=== PATIENT | male | born 1965 | race Two or more races ===

== ENCOUNTER 2024-06-21 20:57 | Emergency (ER) | payer SELFPAY ==
[~2024-06-21] VITALS: Ht 177.8 cm; Wt 91.0 kg
[2024-06-21 21:07] VITALS: O2SAT 98
[2024-06-21] MEDS: IBUPROFEN 600MG TABLET PO ONE (21:30)
[2024-06-21] MEDS ORDERED: IBUP-2029 MT (21:59)
[2024-06-22 00:42] VITALS: BP 121/78; PULSE 88; RESP 18; TEMP 36.61404; O2SAT 98
[2024-06-22] MEDS ORDERED: IBUPROFEN 600MG TABLET PO NR (00:45)
== END 2024-06-22 00:52 | disposition home or self-care (01) ==
LOC: ER 21:42
DX: S93.401A Sprain of unspecified ligament of right ankle, initial encounter (principal); I10 Essential (primary) hypertension; F10.129 Alcohol abuse with intoxication, unspecified; W19.XXXA Unspecified fall, initial encounter; Y93.89 Activity, other specified; Y92.89 Other specified places as the place of occurrence of the external cause; Y99.8 Other external cause status; Y90.9 Presence of alcohol in blood, level not specified
CPT/HCPCS: 73600; 73620; 99284